=== PATIENT | female | born 1955 | race Caucasian/White ===

== ENCOUNTER 2024-05-04 15:09 | Emergency (ER) | payer MEDICARE, SELFPAY ==
--- NOTE | ~2024-05-04 | XR_ITS ---
EXAMINATION: XR HIP, RIGHT CLINICAL INFORMATION: Pain COMPARISON: None available. TECHNIQUE: Two views of the right hip. FINDINGS: No fracture. Alignment is anatomic. Mild-moderate right hip joint space narrowing and subchondral sclerosis. Soft tissues are unremarkable. 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
[2024-05-04 15:19] VITALS: BP 175/75; PULSE 68; RESP 15; TEMP 36.9; O2SAT 98; BMI 32.4
[2024-05-04 15:28] VITALS: BP 175/75; PULSE 60; RESP 16; TEMP 36.8; O2SAT 93
--- NOTE | 2024-05-04 16:34 | ED.EXTPRO ---
HPI - Extremity Problem General Chief complaint: Extremity Problem Stated complaint: R HIP PAIN/POP PER EMS Time Seen by Provider: 05/04/24 16:11 Source: patient Mode of arrival: ambulatory Limitations: no limitations History of Present Illness ED Provider: darrell DRAKE Narrative: Patient's history of chronic back pain apparently picked up about 25 lb dog at the steps and heard a popping sound in her right hip since then having increased pain especially on ambulation no other injuries no significant increase in the back pain pain is localized to right gluteal area radiating to the right thigh no bladder or bowel involvement Related Data Previous Rx's ?Medication ?Instructions ?Recorded cyclobenzaprine 10 mg tablet 10 mg PO Q8H #20 tabs 05/04/24 Allergies Allergy/AdvReac Type Severity Reaction Status Date / Time psyllium [From Metamucil] Allergy Unconscious Verified 05/04/24 15:29 Review of Systems Review of Systems: Yes all other systems are reviewed and are negative PMFSH Social History Social History Advance Directives: No Advance Directives Information Provided: No Physical Exam Vital Signs: Vital Signs: Last Vital Signs Temp 98.2 F 05/04/24 15:28 Pulse 76 05/04/24 16:53 Resp 16 05/04/24 16:53 BP 170/61 H 05/04/24 16:53 Pulse Ox 97 05/04/24 16:53 O2 Del Method Room Air 05/04/24 16:53 BMI result Body Mass Index 32.4 Appearance: Alert. Oriented X3. No acute distress. Eyes: No pallor or icterus ENT: Pharynx normal. Oral Mucosa moist Neck: Normal inspection. Neck supple. CVS: Normal heart rate and rhythm. Pulses normal. Respiratory: No respiratory distress. Equal air entry bilateral, no wheezing/rales/rhonchi Abdomen: Soft and nontender. Bowel sounds are present, no mass palpable, no CVA tenderness Skin: Skin warm and dry. Normal skin color. Normal skin turgor. Extremities: No lower extremity edema. No calf tenderness tenderness at right gluteal area, pace sign positive, SLR -ve Neuro: Oriented X 3. No motor deficit. No sensory deficit.No cerebellar signs , cranial nerves II-XII intact Medications Administered Discontinued Medications Generic Name Dose Route Start Last Admin Trade Name Freq PRN Reason Stop Dose Admin Cyclobenzaprine HCl 10 mg 05/04/24 17:14 05/04/24 17:30 Cyclobenzaprine Hcl 10 Mg Tablet PO 05/04/24 17:15 10 mg ONCE ONE Administration Medical Decision Making Medical Decision Making [facility] Narrative: Patient has acute onset of right sciatic pain likely from piriformis muscle spasm felt better after doing some piriformis stretch exercises no focal lumbar spine tenderness x-ray negative fracture patient ambulated in the ER will discharge patient home advised to follow-up with PCP and advised to do the piriformis stretch exercises Differential Diagnosis Differential Diagnoses: The differential diagnosis associated with the presentation includes Sciatica/piriformis syndrome Independent Interpretation I performed an independent interpretation of an: Plain X-Ray Radiology Impression Discussion of test interpretation with radiology: I have reviewed the radiologist's reading. Discharge Plan Discharge Clinical Impression: Piriformis syndrome of right side Patient Disposition: Home, Self-Care Instructions: Piriformis Syndrome (ED) Additional Instructions: Take Advil/ibuprofen as advised for the pain Piriformis stretching exercises as shown and advised Follow with PCP as needed Muscle relaxant as prescribed Prescriptions: New cyclobenzaprine 10 mg tablet 10 mg PO Q8H Qty: 20 0RF Discharge Date/Time: 05/04/24 18:34 Print Language: Urdu
[2024-05-04 16:53] VITALS: BP 170/61; PULSE 76; RESP 16; O2SAT 97
[2024-05-04] MEDS: Cyclobenzaprine HCl 10 MG TABLET PO (17:30)
== END 2024-05-04 18:34 | disposition home or self-care (01) ==
PROVIDERS: Emergency Provider Internal Medicine
DX: G57.01 Lesion of sciatic nerve, right lower limb (principal); M25.551 Pain in right hip
CPT/HCPCS: 73502; 99283